=== PATIENT | female | born 1995 | race African-American/Black ===

== ENCOUNTER 2021-04-30 09:28 | Emergency (ER) | payer OTHER ==
[2021-04-30 09:48] VITALS: BP 115/75; PULSE 80; TEMP 99.1; BMI 29.2
== END 2021-04-30 11:27 | disposition home or self-care (01) ==
LOC: FER 09:28
PROC: 0HQGXZZ Repair Left Hand Skin, External Approach (ICD-10-PCS; principal; 2021-04-30)
DX: S61.211A Laceration without foreign body of left index finger without damage to nail, initial encounter (principal); W25.XXXA Contact with sharp glass, initial encounter; Y92.9 Unspecified place or not applicable
CPT/HCPCS: 73130-TC-LT-FY; 99284-25

== ENCOUNTER 2021-05-03 09:01 | Emergency (ER) | payer OTHER ==
[2021-05-03 09:07] VITALS: BP 109/64; PULSE 79; TEMP 98.1; BMI 29.2
== END 2021-05-03 09:44 | disposition home or self-care (01) ==
LOC: FER 09:01
DX: Z48.00 Encounter for change or removal of nonsurgical wound dressing (principal)
CPT/HCPCS: 99281-25